=== PATIENT | female | born 1940 | race Caucasian/White ===

== ENCOUNTER → 2024-07-06 09:36 | Outpatient (REF) | payer OTHER, SELFPAY ==
[2024-07-06 10:48] LABS: % Basophils 0.9 % (0-2); % Immature Granulocytes 0.3 % (0-0.5); % Lymphocytes 29.2 % (20.5-51.1); % Monocytes 7.4 % (1.7-9.3); % Neutrophils 59.2 % (42.2-75.2); Absolute Basophils 0.1 10^3/uL (0-0.2); Absolute Eosinophils 0.2 10^3/uL (0-0.7); Absolute Lymphocytes 2.3 10^3/uL (1.2-3.4); Absolute Monocytes 0.6 10^3/uL (0.1-0.6); Absolute Neutrophils 4.7 10^3/uL (1.4-6.5); Hematocrit 44.7 % (37.0-47.0); Hemoglobin 14.8 g/dL (12.0-16.0); Mean Corp Hgb Conc. 33.1 g/dL (33.0-37.0); Mean Corpuscular Volume 90.5 fL (81.0-99.0); Mean Platelet Volume 10.9 fL (7.4-10.4); Nucleated Red Blood Cells % 0 %; Platelet Count 396 10^3/uL (130-400); Red Blood Cell Count 4.94 10^6/uL (4.20-5.40); White Blood Cell Count 7.9 10^3/uL (4.8-10.8)
[2024-07-06 12:24] LABS: Erythrocyte Sed Rate 12 mm/hour (0-20)
[2024-07-06 12:53] LABS: Vitamin D, 25-OH*** 29.3 ng/mL (30-80)
[2024-07-06 13:06] LABS: ALT (SGPT) 31 U/L (0-35); AST (SGOT) 28 U/L (14-36); Albumin 4.5 g/dl (3.5-5.0); Alkaline Phosphatase 56 U/L (38-126); Blood Urea Nitrogen 17 mg/dl (7-17); Calcium 10.2 mg/dl (8.4-10.2); Carbon Dioxide 23 mmol/L (22-30); Chloride 103 mmol/L (98-107); Glucose 215 mg/dl (70-99); HDL Cholesterol 44 mg/dl; Iron 83 ug/dl (37-170); LDL Cholesterol, Calculated 76 mg/dl; Phosphorus 4.3 mg/dl (2.5-4.5); Sodium 141 mmol/L (135-145); Total Bilirubin 0.5 mg/dl (0.2-1.3); Total Cholesterol 189 mg/dl (50-199); Total Protein 7.5 g/dl (6.3-8.2); Triglyceride 345 mg/dl (10-149); Very Low Density Lipoprotein 69 mg/dl (0-30); eGFR > 60.00
[2024-07-06 13:07] LABS: TSH Reflex To Free T4 3.47 uIU/ml (0.47-4.68)
[2024-07-06 13:16] LABS: Percent Saturation 23 % (20-50); Total Iron Binding Capacity 358 ug/dl (265-497)
[2024-07-06 13:43] LABS: Folate 8.6 ng/ml (2.76-20); Vitamin B12 216 pg/ml (239-931)
[2024-07-06 14:14] LABS: Glycohemoglobin (HgbA1c) 9.7 % (4.0-5.6)
[2024-07-06 14:33] LABS: Ferritin 15.5 ng/ml (11.1-264.0)
[2024-07-06 15:22] LABS: Syphilis/T. pallidum Ab Reflex Negative (Negative)
[2024-07-08 15:09] LABS: Lyme Antibody Screen, EIA Negative (Negative)
== END ==
LOC: OLABWIL 09:36
PROVIDERS: ATTENDING PHYSICIAN Nurse Practitioner Primary Care
DX: E11.65 Type 2 diabetes mellitus with hyperglycemia (principal); N18.31 Chronic kidney disease, stage 3a; E78.2 Mixed hyperlipidemia; K21.9 Gastro-esophageal reflux disease without esophagitis; R41.89 Other symptoms and signs involving cognitive functions and awareness; E53.8 Deficiency of other specified B group vitamins; E55.9 Vitamin D deficiency, unspecified; E61.1 Iron deficiency
CPT/HCPCS: 36415; 80053; 80061; 82306; 82607; 82728; 82746; 83036; 83540; 83550; 84100; 84443; 85025; 85652; 86618; 86780

== ENCOUNTER → 2025-01-27 10:12 | Outpatient (REF) | payer MEDICARE, OTHER, SELFPAY ==
[2025-01-27 10:49] LABS: % Basophils 0.8 % (0-2); % Eosinophils 5.8 % (0-6); % Immature Granulocytes 0.3 % (0-0.5); % Lymphocytes 26.3 % (20.5-51.1); % Monocytes 8.8 % (1.7-9.3); Absolute Basophils 0.1 10^3/uL (0-0.2); Absolute Eosinophils 0.5 10^3/uL (0-0.7); Absolute Lymphocytes 2.1 10^3/uL (1.2-3.4); Absolute Monocytes 0.7 10^3/uL (0.1-0.6); Absolute Neutrophils 4.6 10^3/uL (1.4-6.5); Hematocrit 43.2 % (37.0-47.0); Hemoglobin 14.4 g/dL (12.0-16.0); Mean Corp Hgb Conc. 33.3 g/dL (33.0-37.0); Mean Corpuscular Hgb 30.6 pg (27.0-31.0); Mean Corpuscular Volume 91.9 fL (81.0-99.0); Mean Platelet Volume 10.1 fL (7.4-10.4); Nucleated Red Blood Cells % 0 %; Platelet Count 363 10^3/uL (130-400); Red Cell Dist. Width 14.2 % (11.5-14.5); White Blood Cell Count 7.9 10^3/uL (4.8-10.8)
[2025-01-27 11:29] LABS: ALT (SGPT) 23 U/L (0-35); AST (SGOT) 20 U/L (14-36); Albumin 4.5 g/dl (3.5-5.0); Alkaline Phosphatase 58 U/L (38-126); Blood Urea Nitrogen 19 mg/dl (7-17); Calcium 10.3 mg/dl (8.4-10.2); Carbon Dioxide 25 mmol/L (22-30); Chloride 105 mmol/L (98-107); Glucose 145 mg/dl (70-99); Potassium 4.3 mmol/L (3.5-5.1); Sodium 143 mmol/L (135-145); Total Bilirubin 0.5 mg/dl (0.2-1.3); Total Protein 7.3 g/dl (6.3-8.2); eGFR > 60.00
[2025-01-27 11:49] LABS: TSH Reflex To Free T4 2.61 uIU/ml (0.47-4.68)
[2025-01-27 12:26] LABS: Urine Albumin 2+ (Neg - Trace); Urine Bilirubin Negative (Negative); Urine Character Cloudy (Clear); Urine Color Yellow; Urine Glucose 4+ (Negative); Urine Ketone Negative (Negative); Urine Leukocyte 3+ (Negative); Urine Nitrite Positive (Negative); Urine Occult Blood 3+ (Negative); Urine Urobilinogen Negative (Neg - 1+)
[2025-01-27 12:48] LABS: Urine Squamous Cell 0-2 /LPF (Few)
[2025-01-27 12:49] LABS: Urine Bacteria Few (Negative); Urine White Cell 50-60 /HPF (0-5)
[2025-01-27 14:03] LABS: IgA 457 mg/dl (70-400)
[2025-01-29 00:36] LABS: SSA 52 (Ro)(ENA) Ab, IgG 8 AU/mL (0-40); SSA 60 (Ro)(ENA) Ab, IgG 1 AU/mL (0-40); SSB (La)(ENA) Ab, IgG 0 AU/mL (0-40)
[2025-01-29 02:06] LABS: Endomysial IgA Antibody Titer <1:10 (<1:10)
== END ==
LOC: OLABWIL 10:12
PROVIDERS: ATTENDING PHYSICIAN Internal Medicine Gastroenterology; FAMILY PHYSICIAN Nurse Practitioner Primary Care
DX: K58.2 Mixed irritable bowel syndrome (principal); R68.2 Dry mouth, unspecified; E11.9 Type 2 diabetes mellitus without complications; I10 Essential (primary) hypertension; E78.2 Mixed hyperlipidemia; N39.0 Urinary tract infection, site not specified
CPT/HCPCS: 36415; 80053; 81003; 81015; 82784; 83036; 83516; 84443; 85025; 86231; 86235; 87086; 87147; 87186

== ENCOUNTER → 2025-01-28 09:45 | Outpatient (REF) | payer MEDICARE, OTHER, SELFPAY | LOC: OLABWIL 09:45 | PROVIDERS: ATTENDING PHYSICIAN Internal Medicine Gastroenterology | DX: K58.2 Mixed irritable bowel syndrome (principal) | CPT/HCPCS: 82653; 83993 ==

== ENCOUNTER → 2025-02-03 08:54 | Outpatient (REF) | payer MEDICARE, OTHER, SELFPAY ==
[2025-02-05 16:56] LABS: Quantiferon Mitogen minus NIL 9.92 IU/mL; Quantiferon NIL 0.08 IU/mL; Quantiferon Plus TB1 minus NIL 0.03 IU/mL (<=0.34); Quantiferon Plus TB2 minus NIL 0.05 IU/mL (<=0.34); Quantiferon TB Gold Plus Negative (Negative)
== END ==
LOC: OLABWIL 08:54
PROVIDERS: ATTENDING PHYSICIAN Physician Assistant Medical
DX: Z79.899 Other long term (current) drug therapy (principal); L40.0 Psoriasis vulgaris; L82.1 Other seborrheic keratosis
CPT/HCPCS: 36415; 86480

== ENCOUNTER → 2025-08-09 13:23 | Outpatient (REF) | payer MEDICARE, OTHER, SELFPAY | LOC: EMG 13:23 | PROVIDERS: ATTENDING PHYSICIAN Orthopaedic Surgery; FAMILY PHYSICIAN Nurse Practitioner Primary Care | DX: R20.0 Anesthesia of skin (principal); G56.02 Carpal tunnel syndrome, left upper limb | CPT/HCPCS: 95886; 95909 ==